=== PATIENT | female | born 1940 | race Caucasian/White ===

== ENCOUNTER → 2019-01-13 | Outpatient (CLI) | payer MEDICARE ==
--- NOTE | 2019-01-13 12:53 | US ---
EXAMINATION TYPE: US carotid duplex BILAT DATE OF EXAM: 01/13/2019 COMPARISON: NONE CLINICAL HISTORY: R09.89 Other specified symptoms and signs involvin circ and. dizziness and blacked out for about 6 minutes EXAM MEASUREMENTS: RIGHT: Peak Systolic Velocity (PSV) cm/sec ----- Right CCA: 79.3 ----- Right ICA: 91.0 ----- Right ECA: 115.7 ICA/CCA ratio: 1.1 RIGHT: End Diastole cm/sec ----- Right CCA: 14.0 ----- Right ICA: 19.8 ----- Right ECA: 15.4 LEFT: Peak Systolic Velocity (PSV) cm/sec ----- Left CCA: 87.8 ----- Left ICA: 103.0 ----- Left ECA: 89.8 ICA/CCA ratio: 1.2 LEFT: End Diastole cm/sec ----- Left CCA: 13.1 ----- Left ICA: 33.7 ----- Left ECA: 0 VERTEBRALS (direction of flow): Right Vertebral: Antegrade Left Vertebral: Antegrade Rhythm: Normal Intimal thickening bilaterally. No athrosclerotic changes No hemodynamic stenosis IMPRESSION: Mild degree of grayscale atheromatous plaquing with no sonographically evident hemodynam ically significant stenosis within either visualized carotid arterial system. Criteria for Assigning % of Stenosis / Diameter reduction (Estimation based on the indirect measurements of the internal carotid artery velocities (ICA PSV). 1. Normal (no stenosis)=ICA PSV < 125 cm/s: ratio < 2.0: ICA EDV<40 cm/s. 2. Less than 50% stenosis=ICA PSV < 125 cm/s: ratio < 2.0: ICA EDV<40 cm/s. 3. 50 to 69% stenosis=ICA PSV of 125 to 230 cm/s: ration 2.0 ? 4.0: ICA EDV 40-100 cm/s. 4. Greater than 70% stenosis to near occlusion= ICA PSV > 230 cm/s: ratio > 4.0: ICA EDV > 100 cm/s. 5. Near occlusion= ICA PSV velocities may be low or undetectable: variable ratio and ICA EDV. 6. Total occlusion=unable to detect flow.
== END | disposition home or self-care (01) ==
LOC: RADBDWWP 09:00
PROVIDERS: ATTEND Internal Medicine
DX: I65.23 Occlusion and stenosis of bilateral carotid arteries (principal)
CPT/HCPCS: 93880

== ENCOUNTER 2019-03-26 13:05 | Observation (INO) | payer MEDICARE ==
[2019-03-26] MEDS ORDERED: SODIUM CHLORIDE 0.9% 500 ML 500 ML IV STA (13:41)
[2019-03-26 14:14] LABS: Basophils % (A) 1 %; Eosinophils # (A) 0.1 k/uL (0-0.7); Eosinophils % (A) 1 %; HCT 41.3 % (34.0-46.0); Lymphocytes # (A) 2.4 k/uL (1.0-4.8); Lymphocytes % (A) 41 %; MCH 29.7 pg (25.0-35.0); MCHC 33.8 g/dL (31.0-37.0); MCV 87.9 fL (80.0-100.0); Mean Platelet Volume 6.8; Monocytes # (A) 0.3 k/uL (0-1.0); Monocytes % (A) 5 %; Neutrophils % (A) 51 %; Platelet Count 302 k/uL (150-450); RDW 15.8 % (11.5-15.5); WBC 5.9 k/uL (3.8-10.6)
--- NOTE | 2019-03-26 14:15 | XR ---
EXAMINATION TYPE: XR chest 2V DATE OF EXAM: 03/26/2019 COMPARISON: NONE HISTORY: Syncope TECHNIQUE: Frontal and lateral views of the chest are obtained. FINDINGS: There is no heart failure nor confluent pneumonic infiltrate. Costophrenic angles are mia r. Heart size is normal. Thoracic aorta is atheromatous. There are chest leads. IMPRESSION: No active cardiopulmonary disease. Normal heart.
--- NOTE | 2019-03-26 14:20 | ED ---
Syncope HPI - General Chief Complaint: Syncope Stated Complaint: Syncope Time Seen by Provider: 03/26/19 13:28 Source: patient, RN notes reviewed Mode of arrival: wheelchair Limitations: no limitations - History of Present Illness Initial Comments: 79-year-old female presents emergency Department with chief complaint of syncopal episode. Patient was upstairs visiting a friend in which she had a witnessed syncopal episode. Patient states that she felt like she needed to have a bowel movement states that she started having severe abdominal cramps and which she states that she felt like she was given a pass out so she laid down. A few seconds later she got up to have a bowel movement states that her friend witnessed her turned diaphoretic, pale and started having severe cramping again. Patient then passed out in which she was caught by person the room she was observed for several minutes to not be responsive though was breathing. Nurses on the floor were contemplating calling the code. Patient states that she has no complaints at this time patient did come to she has had this happen in the past. Patient does not take any current medications. - Related Data Home Medications Medication Instructions Recorded Confirmed No Known Home Medications 02/12/16 03/26/19 Allergies Allergy/AdvReac Type Severity Reaction Status Date / Time codeine AdvReac Nausea Verified 03/26/19 13:20 Sulfa (Sulfonamide AdvReac Nausea Verified 03/26/19 13:20 Antibiotics) Review of Systems ROS Statement: Those systems with pertinent positive or pertinent negative responses have been documented in the HPI. ROS Other: All systems not noted in ROS Statement are negative. Past Medical History Past Medical History: Eye Disorder Additional Past Medical History / Comment(s): CATARACTS BILAT EYES History of Any Multi-Drug Resistant Organisms: None Reported Past Surgical History: Hysterectomy, Tubal Ligation Additional Past Surgical History / Comment(s): COLONSCOPY, VARICOSE VEINS STRIPPED Past Anesthesia/Blood Transfusion Reactions: No Reported Reaction Past Psychological History: No Psychological Hx Reported Smoking Status: Never smoker - Past Family History Sister(s) Family Medical History: Cancer Brother(s) Family Medical History: Cancer Additional Family Medical History / Comment(s): 2 BROTHERS General Exam Limitations: no limitations General appearance: alert, in no apparent distress Head exam: Present: atraumatic, normocephalic, normal inspection Eye exam: Present: normal appearance, PERRL, EOMI. Absent: scleral icterus, conjunctival injection, periorbital swelling ENT exam: Present: normal exam, normal oropharynx, mucous membranes moist Neck exam: Present: normal inspection, full ROM. Absent: tenderness, meningismus, lymphadenopathy Respiratory exam: Present: normal lung sounds bilaterally. Absent: respiratory distress, wheezes, rales, rhonchi, stridor Cardiovascular Exam: Present: normal rhythm, tachycardia, normal heart sounds. Absent: systolic murmur, diastolic murmur, rubs, gallop, clicks GI/Abdominal exam: Present: soft, normal bowel sounds. Absent: distended, tenderness, guarding, rebound, rigid Neurological exam: Present: alert, oriented X3, CN II-XII intact Skin exam: Present: warm, dry, intact, normal color. Absent: rash Course Vital Signs 03/26/19 03/26/19 03/26/19 13:06 13:31 14:19 Temperature 97.7 F Pulse Rate 53 L Pulse Rate [ Liquor Tester ] Respiratory 16 16 Rate Blood Pressure 130/62 Blood Pressure [Left Arm Sitting] Blood Pressure [Left Arm Standing] Blood Pressure 156/71 [Left Arm Supine] O2 Sat by Pulse 93 L 95 99 Oximetry 03/26/19 03/26/19 14:21 14:23 Temperature Pulse Rate Pulse Rate [ 68 Liquor Tester ] Respiratory 16 16 Rate Blood Pressure Blood Pressure 169/71 [Left Arm Sitting] Blood Pressure 169/81 [Left Arm Standing] Blood Pressure [Left Arm Supine] O2 Sat by Pulse 99 98 Oximetry EKG Findings - EKG Comments: EKG Findings:: EKG performed at 13:32 sinus bradycardia rate of 48 MT 172 QRS 86 QT/QTC 500/446 Medical Decision Making - Medical Decision Making 79-year-old female presented for syncopal episode. Patient's found to be bradycardic, did have a witness equal episode with no neurological deficits this time. She no head injury. Patient's labs unremarkable. Patient be admitted at this time. - Lab Data Result diagrams: 03/26/19 13:45 03/26/19 13:45 Lab Results 03/26/19 03/26/19 03/26/19 Range/Units 13:45 13:45 13:45 WBC 5.9 (3.8-10.6) k/uL RBC 4.70 (3.80-5.40) m/uL Hgb 14.0 (11.4-16.0) gm/dL Hct 41.3 (34.0-46.0) % MCV 87.9 (80.0-100.0) fL MCH 29.7 (25.0-35.0) pg MCHC 33.8 (31.0-37.0) g/dL RDW 15.8 H (11.5-15.5) % Plt Count 302 (150-450) k/uL Neutrophils % 51 % Lymphocytes % 41 % Monocytes % 5 % Eosinophils % 1 % Basophils % 1 % Neutrophils # 3.0 (1.3-7.7) k/uL Lymphocytes # 2.4 (1.0-4.8) k/uL Monocytes # 0.3 (0-1.0) k/uL Eosinophils # 0.1 (0-0.7) k/uL Basophils # 0.0 (0-0.2) k/uL PT 10.1 (9.0-12.0) sec INR 0.9 (<1.2) APTT 19.4 L (22.0-30.0) sec Sodium 141 (137-145) mmol/L Potassium 3.9 (3.5-5.1) mmol/L Chloride 108 H (98-107) mmol/L Carbon Dioxide 23 (22-30) mmol/L Anion Gap 10 mmol/L BUN 17 (7-17) mg/dL Creatinine 0.99 (0.52-1.04) mg/dL Est GFR (CKD-EPI)AfAm 62 (>60 ml/min/1.73 sqM) Est GFR (CKD-EPI)NonAf 54 (>60 ml/min/1.73 sqM) Glucose 133 H (74-99) mg/dL Calcium 9.5 (8.4-10.2) mg/dL Magnesium 2.3 (1.6-2.3) mg/dL Total Bilirubin 0.5 (0.2-1.3) mg/dL AST 37 H (14-36) U/L ALT 29 (9-52) U/L Alkaline Phosphatase 68 (38-126) U/L Troponin I (0.000-0.034) ng/mL Total Protein 7.1 (6.3-8.2) g/dL Albumin 4.3 (3.5-5.0) g/dL 03/26/19 Range/Units 13:45 WBC (3.8-10.6) k/uL RBC (3.80-5.40) m/uL Hgb (11.4-16.0) gm/dL Hct (34.0-46.0) % MCV (80.0-100.0) fL MCH (25.0-35.0) pg MCHC (31.0-37.0) g/dL RDW (11.5-15.5) % Plt Count (150-450) k/uL Neutrophils % % Lymphocytes % % Monocytes % % Eosinophils % % Basophils % % Neutrophils # (1.3-7.7) k/uL Lymphocytes # (1.0-4.8) k/uL Monocytes # (0-1.0) k/uL Eosinophils # (0-0.7) k/uL Basophils # (0-0.2) k/uL PT (9.0-12.0) sec INR (<1.2) APTT (22.0-30.0) sec Sodium (137-145) mmol/L Potassium (3.5-5.1) mmol/L Chloride (98-107) mmol/L Carbon Dioxide (22-30) mmol/L Anion Gap mmol/L BUN (7-17) mg/dL Creatinine (0.52-1.04) mg/dL Est GFR (CKD-EPI)AfAm (>60 ml/min/1.73 sqM) Est GFR (CKD-EPI)NonAf (>60 ml/min/1.73 sqM) Glucose (74-99) mg/dL Calcium (8.4-10.2) mg/dL Magnesium (1.6-2.3) mg/dL Total Bilirubin (0.2-1.3) mg/dL AST (14-36) U/L ALT (9-52) U/L Alkaline Phosphatase (38-126) U/L Troponin I <0.012 (0.000-0.034) ng/mL Total Protein (6.3-8.2) g/dL Albumin (3.5-5.0) g/dL Disposition Clinical Impression: Syncope, Bradycardia Disposition: ADMITTED IP TO THIS HOSP Condition: Stable Referrals: Alejandro Lopez MD [Primary Care Provider] - 1-2 days
[2019-03-26 14:22] LABS: Albumin 4.3 g/dL (3.5-5.0); Calcium 9.5 mg/dL (8.4-10.2); Magnesium 2.3 mg/dL (1.6-2.3); Total Bilirubin 0.5 mg/dL (0.2-1.3); Total Protein 7.1 g/dL (6.3-8.2)
[2019-03-26 14:29] LABS: Potassium 3.9 mmol/L (3.5-5.1)
[2019-03-26 14:42] LABS: INR 0.9 (<1.2); Prothrombin Time 10.1 sec (9.0-12.0)
[2019-03-26 14:46] LABS: Partial Thromboplastin Time 19.4 sec (22.0-30.0)
[2019-03-26] MEDS ORDERED: NALOXONE 0.4 MG/ML 1 ML VIAL IV PRN (15:06)
[2019-03-26] MEDS ORDERED: ACETAMINOPHEN TAB 325 MG TAB PO PRN (15:06)
[2019-03-26 15:40] LABS: Appearance,Urine Clear (Clear); Bilirubin,Urine Negative (Negative); Blood,Urine Negative (Negative); Color,Urine Light Yellow; Glucose,Urine (UA) Negative (Negative); Ketones,Urine Negative (Negative); Leukocyte Esterase,Urine Negative (Negative); Nitrite,Urine Negative (Negative); Protein,Urine Negative (Negative); Specific Gravity,Urine 1.009 (1.001-1.035); Urobilinogen,Urine <2.0 mg/dL (<2.0)
--- NOTE | 2019-03-26 16:33 | P.HPIM ---
History of Present Illness H&P Date: 03/26/19 Chief Complaint: syncope Patient is an 79-year-old female with a past medical history of cataracts and prior syncopal events who was here visiting her friend and had a syncopal event. She initially felt some abdominal pain and cramping and that she had a bowel movement. She then started feeling faint and dizzy. She broke out in sweat. She then later resolved on the floor to stop from passing out and raised her legs. She then felt slightly better. She tried to get up to the toilet. While she was on the toilet trying to have a bowel movement she had passed out and was unresponsive. Per bystanders she stopped breathing and turned blue. She was laid back on the floor and woke back up. She was then taken to the ER. On arrival to the emergency department she was found be slightly bradycardic with heart rate of 53. Blood pressure was 130/62 and oxyg en saturation was 93% on room air. Initial laboratory analysis showed a slightly elevated glucose at 133. Urinalysis was negative. Chest x-ray showed no acute process. EKG demonstrated sinus bradycardia at a rate of 48, MI 172, QRS 86, QTC 446. Initial set of orthostatics was negative in the ER. Arrangements were made for admission for syncopal event. She reports that she had a similar episode approximately 3 years ago where she became lightheaded, diaphoretic, and passed out. She reports she underwent an evaluation with Dr. Lopez and no cause was found. She reports that her abdomina l pain started suddenly stay and felt a cramping in the have a bowel movement. She did not have any abdominal pain prior to this episode and is now resolved. She states that she felt diaphoretic and as though she would pass out but she laid herself on the floor. She was not in any palpitations, shortness of breath, she felt overall weak but did not have any strokelike symptoms. She initially went to the bathroom and laid back down on the floor. She will bowel movement when she was on the toilet. She then got up to try to have another bowel movement and this is when she passed out. This for a few minutes. Her friend who is a nurse practitioner was a bystander and reports that she vomited after waking back up. She states that she was very pale, diaphoretic, and was not breathing normally. There is no signs of shaking, no loss of bowel or bladder control noted. She immediately woke back up. She has not been ill recently. She does see a natural doctor and takes a cardio plus supplement +2 additional supplements. She's been doing so for approximately 2 years. Review of Systems Pertinent positives and negatives as discussed in HPI, a complete review of systems was performed and all other systems are negative. Past Medical History Past Medical History: Eye Disorder Additional Past Medical History / Comment(s): CATARACTS BILAT EYES History of Any Multi-Drug Resistant Organisms: None Reported Past Surgical History: Hysterectomy, Tubal Ligation Additional Past Surgical History / Comment(s): COLONSCOPY, VARICOSE VEINS STRIPPED Past Anesthesia/Blood Transfusion Reactions: No Reported Reaction Past Psychological History: No Psychological Hx Reported Smoking Status: Never smoker Past Alcohol Use History: None Reported Past Drug Use History: None Reported Additional History: Lives with her friend, no assistive devices - Past Family History Sister(s) Family Medical History: Cancer Brother(s) Family Medical History: Cancer Additional Family Medical History / Comment(s): 2 BROTHERS. Younger brother with valvular diesease requiring repleacement and PPM Father Family Medical History: Myocardial Infarction ([place]) Mother Family Medical History: Myocardial Infarction ([place]) Medications and Allergies Home Medications Medication Instructions Recorded Confirmed Type No Known Home Medications 02/12/16 03/26/19 History Allergies Allergy/AdvReac Type Severity Reaction Status Date / Time codeine AdvReac Nausea Verified 03/26/19 13:20 Sulfa (Sulfonamide AdvReac Nausea Verified 03/26/19 13:20 Antibiotics) Physical Exam Osteopathic Statement: *. No significant issues noted on an osteopathic structural exam other than those noted in the History and Physical/Consult. Vitals: Vital Signs Temp Pulse Pulse Resp BP BP BP 03/26/19 15:35 97.5 F L 73 16 172/72 03/26/19 14:23 68 16 169/81 03/26/19 14:21 16 169/71 03/26/19 14:19 16 03/26/19 13:31 03/26/19 13:06 97.7 F 53 L 16 130/62 BP Pulse Ox 03/26/19 15:35 97 03/26/19 14:23 98 03/26/19 14:21 99 03/26/19 14:19 156/71 99 03/26/19 13:31 95 03/26/19 13:06 93 L Intake and Output 03/26/19 03/26/19 03/26/19 06:59 14:59 22:59 Other: Weight 68.039 kg General: non toxic, no distress, appears younger than stated age, normal weight Derm: no unusual rashes/lesions no unusual ecchymoses, warm, dry Head: atraumatic, normocephalic, symmetric Eyes: EOMI, no lid lag, anicteric sclera, pupils equal round reactive to light ENT: Nose and ears atraumatic, no thrush, no pharyngeal erythema Neck: No thyromegaly, no cervical lymphadenopathy, trachea midline, supple Mouth: no lip lesion, mucus membranes moist Cardiovascular: S1S2 reg, no murmur, positive posterior tibial pulse bilateral, no edema, capillary refill less than 2 seconds Lungs: CTA bilateral, no rhonchi, no rales , no accessory muscle use Abdominal: soft, nontender to palpation, no guarding, no appreciable organomegaly, normal bowel sounds Ext: no gross muscle atrophy, muscle strength 5 out of 5 in all 4 extremities grossly, no contractures, Neuro: CN II-XI grossly intact, light touch intact all 4 extremities, finger to nose within normal limits, Psych: Alert, oriented, appropriate affect Results CBC & Chem 7: 03/26/19 13:45 03/26/19 13:45 Labs: Abnormal Lab Results - Last 24 Hours (Table) 03/26/19 03/26/19 03/26/19 Range/Units 13:45 13:45 13:45 RDW 15.8 H (11.5-15.5) % APTT 19.4 L (22.0-30.0) sec Chloride 108 H (98-107) mmol/L Glucose 133 H (74-99) mg/dL AST 37 H (14-36) U/L Comments: EKG reviewed as dictated above Chest x-ray: report reviewed Thrombosis Risk Factor Assmnt - DVT/VTE Prophylaxis DVT/VTE Prophylaxis: Low risk, early ambulation encouraged Assessment and Plan Assessment: Syncopal event associated with bradycardia - Tele - repeat orthostatics - consult cardio, inpatient vs outpatient echo - fall precuations - Check Mg levels as patient takes cardio-plus supplement which continas mg, niacin, and other supplements The patient is placed in observation with an anticipated less than 2 midnight stay for evaluation of syncope. Surrogate decision-maker: Friend- Judy King CODE STATUS: Full DVT prophylaxis: SCDs Discussed with: Patient, friend, ED physician Anticipated discharge date: 1-[address]: home A total of 35 minutes was spent on the care of this complex patient more than 50% of the time was spent in counseling and care coordination.
[2019-03-26 18:32] VITALS: BMI 26.5
[2019-03-27 08:09] VITALS: RESP 18; TEMP 97.4
[2019-03-27 11:35] VITALS: BP 163/82; PULSE 54
--- NOTE | 2019-03-27 11:43 | CONS ---
CONSULTATION REASON FOR CONSULT: Bradycardia and vasovagal syncope. HISTORY OF PRESENT ILLNESS: Mrs. Analilia Courtney is an 79-year-old lady without significant past medical history. She has sometimes elevated blood pressure, but does not take any regular medications. She came into see a patient in the Hospital and then she felt somewhat uncomfortable in her stomach and went on to have a bowel movement when she developed abdominal severe cramps and made her feel lightheaded, dizzy sensation of passing out and so she laid down and few seconds later she got up to have a bowel movement again and then turned diaphoretic, pale and had a near syncopal spell and apparently did pass out. She was taken to the emergency room and there she was hydrated. No orthostatic changes. She is feeling better this morning. She still has bradycardia. Her heart rate is in the 50s without any medications. She is resting comfortably without symptoms. She has no orthostatic changes. I made her walk the hallways up and down. Heart rate went up to 84 beats per minute sinus mechanism. She was asymptomatic. PAST MEDICAL HISTORY: She has a history of some hysterectomy, tubal ligation, labile hypertension, but on no medications. She sees Dr. Lopez on a regular basis. MEDICATIONS: At home none. ALLERGIES: ALLERGIC TO CODEINE AND SULFA. PHYSICAL EXAMINATION: Blood pressure is 150/70 without orthostatic changes. Pulse rate is about 56 per minute. HEENT unremarkable. Fundus was not examined by me. Neck is supple. There is no JVD. I do not hear a carotid bruit. Heart exam reveals S1, S2 heard normally. There is a short systolic murmur. Lungs are clear. Abdomen is soft, nontender. Lower extremities reveal normal palpable pulses. No edema. Central nervous system is grossly within normals. The patient had the recently a carotid Doppler which was unremarkable. The EKG revealed sinus bradycardia. No acute changes. IMPRESSION: 1. Episode of vasovagal syncope. The patient may have a high vagal tone. 2. Hypertension, but under fair control. RECOMMENDATIONS: I am asking that we hydrate the patient orally and with increased activity she has no symptoms. Heart rate went up to 84 beats per minute. She can be discharged, but I would recommend an echo as an outpatient and also a 24 hour Holter as well. I explained to the patient that she has a high vagal tone and advised situational modification including staying well hydrated. Thank you very much for the consult. JAMILAL / IJN: [id number] /
--- NOTE | 2019-03-27 12:31 | P.DS ---
Providers Date of admission: 03/26/19 15:26 Expected date of discharge: 03/27/19 Attending physician: Hilaria Garcia, DO Consults: 03/26/19 16:28 Consult Physician Routine Consulting Provider: Janine Casiano Consult Reason/Comments: Syncope Do you want consulting provider notified?: Yes Primary care physician: Alejandro Lopez Hospital Course: Discharge Diagnosis: Syncope Bradycardia- asymptomatic HTN Hospital Course: Patient is an 79-year-old female with a past medical history of cataracts and prior syncopal events who was here visiting her friend and had a syncopal event. She initially felt some abdominal pain and cramping and that she needed to have a bowel movement. She then started feeling faint and dizzy. She broke out in sweat. This resolved when she layed on the floor to stop from passing out and raised her legs. She then felt slightly better. She tried to get up to the toilet. While she was on the toilet trying to have a bowel movement she had passed out and was unresponsive. Per bystanders she stopped breathing and turned blue. She was laid back on the floor and woke back up. She was then taken to the ER. On arrival to the emergency department she was found be slightly bradycardic with heart rate of 53. Blood pressure was 130/62 and oxygen saturation was 93% on room air. Initial laboratory analysis showed a slightly elevated glucose at 133. Urinalysis was negative. Chest x-ray showed no acute process. EKG demonstrated sinus bradycardia at a rate of 48, NH 172, QRS 86, QTC 446. Initial set of orthostatics was negative in the ER. Arrangements were made for admission for syncopal event. She was monitored on telemetry overnight. Should have some bradycardia as well as intermittent fast heart rate episodes. She was seen by cardiology. They did a walk test heart rate did elevate to 84 bpm. Repeat orthostatics were negative. She underwent oral fluid hydration. She was determined stable for discharge home. She'll follow up with cardiology in the office to undergo an echocardiogram and Holter monitor testing. I've also asked her to follow-up with her urinary care physician Dr. Lopez and bring in all of her supplement medications to ensure they are safe to be taken together. She will also return to the emergency department if she has recurrent symptoms. Patient seen and examined at bedside. No chest pain, no additional episodes, tolerated walking fine Vital signs reviewed and stable. General: non toxic, no distress, appears younger than stated age. Derm: warm, dry Head: atraumatic, normocephalic, symmetric Eyes: EOMI, no lid lag, anicteric sclera Mouth: no lip lesion, mucus membranes moist Cardiovascular: S1S2 reg, no murmur, positive posterior tibial pulse bilateral, Lungs: CTA bilateral, no rhonchi, no rales , no accessory muscle use Abdominal: soft, nontender to palpation, no guarding, no appreciable or ganomegaly Ext: no gross muscle atrophy, no edema, no contractures Neuro: CN II-XI grossly intact, no focal neuro deficits Psych: Alert, oriented, appropriate affect A total of 25 minutes of time were spent preparing this complex discharge summary . Pertinent Studies: CXR- No acute process. Patient Condition at Discharge: Stable Plan - Discharge Summary Discharge Rx Participant: No New Discharge Prescriptions: No Action No Known Home Medications Discharge Medication List No Known Home Medications 02/12/16 [History] Follow up Appointment(s)/Referral(s): Alejandro Lopez MD [Primary Care Provider] - 1-2 days
== END 2019-03-27 13:25 | disposition home or self-care (01) ==
LOC: EC 13:05 → 1SOBS 15:26 → 3NMEDONC 16:36
PROVIDERS: ADMIT Internal Medicine; ATTEND Internal Medicine
DX: R55 Syncope and collapse (principal); R00.1 Bradycardia, unspecified; I10 Essential (primary) hypertension; R10.9 Unspecified abdominal pain; R42 Dizziness and giddiness; R61 Generalized hyperhidrosis; R73.9 Hyperglycemia, unspecified; R00.0 Tachycardia, unspecified; R11.10 Vomiting, unspecified; R06.09 Other forms of dyspnea; Z88.5 Allergy status to narcotic agent; Z88.2 Allergy status to sulfonamides; Z82.49 Family history of ischemic heart disease and other diseases of the circulatory system; Z80.9 Family history of malignant neoplasm, unspecified; Z90.710 Acquired absence of both cervix and uterus
CPT/HCPCS: 96360; 99285; 36415; 93005; 84439; 80053; 83735; 84484; 85025; 85610; 85730; 81003; 71046; G0378 ×3

== ENCOUNTER → 2019-04-15 | Outpatient (CLI) | payer MEDICARE ==
--- NOTE | 2019-04-15 12:16 | ECHOS ---
STRESS ECHOCARDIOGRAM INDICATIONS: Syncope MEDICATIONS: None. BASELINE HEART RATE: 61 BASELINE BLOOD PRESSURE: 135/89 MAXIMUM HEART RATE: 142 MAXIMUM BLOOD PRESSURE: 212/67 85% MPHR: 119 100% MPHR: 140 METS: 8.5 MAXIMUM STAGE REACHED: 3 TOTAL EXERCISE TIME: 7:00 CLINICAL INFORMATION: Baseline rhythm is a sinus mechanism, rate of 61, normal axis, poor R-wave progression. Baseline blood pressure 135/89 mmHg. Patient exercised on William protocol for 7 minutes reaching peak rate of 142 beats per minute which is equal to 100% maximum predicted heart rate. Peak blood pressure 212/67 mmHg. Test was terminated secondary to fatigue. There was no chest pain. Electrocardiograph monitoring revealed no evidence of diagnostic ischemic ST deviation. FINDINGS: Baseline echocardiogram revealed normal wall thickening and motion. At peak exercise there was normal wall thickening and motion without any hypokinesis or dyskinesis. CONCLUSION: 1. Good exercise tolerance with normal electrocardiograph response to exercise. 2. Normal stress echocardiogram with no evidence of stress-induced ischemia. MMODL / IJN: [id number] /
== END | disposition home or self-care (01) ==
LOC: RADNMMAIN 09:48
PROVIDERS: ATTEND Internal Medicine
DX: R09.89 Other specified symptoms and signs involving the circulatory and respiratory systems (principal); R55 Syncope and collapse
CPT/HCPCS: 93351

== ENCOUNTER 2022-09-25 08:40 | Observation (INO) | payer MEDICARE ==
[2022-09-25] MEDS ORDERED: SODIUM CHLORIDE 0.9% 500 ML 500 ML IV STA (08:47)
--- NOTE | 2022-09-25 08:52 | ED ---
General Adult HPI - General Stated complaint: Near Syncope Time Seen by Provider: 09/25/22 08:42 Source: patient, RN notes reviewed, old records reviewed - History of Present Illness Initial comments: This is an 82-year-old female who presents emergency department with past medical history significant for hypertension. Patient also states she has had 3 episodes of near syncope or syncope in the last 2 years. Patient states she also started on blood pressure medicine in the last 2 months. Patient states this morning she got up to her blood pressure medicine about cord 8 and then started having some abdominal cramping since she's had in the toilet to have a bowel movement. Patient states she became very weak on toilet and very diaphoretic. According to EMS when they got there she was diaphoretic and had a decreased level of consciousness though she was not completely unconscious she was very slow to respond to any questions. EMS stated that when they took her pulse she was in the 30s and I gave her a bolus of fluid in shoulder that after her heart rate came up. Her initial blood pressure had a systolic level of 113. After the fluid bolus she was up into the 140s. Patient denies any chest pain shortness of breath or difficulty breathing. Patient has any abdominal pain patient denies any nausea or diarrhea. Patient denies any recent fever chills or cough. - Related Data Home Medications Medication Instructions Recorded Confirmed amLODIPine [Norvasc] 2.5 mg PO DAILY 09/25/22 09/25/22 Allergies Allergy/AdvReac Type Severity Reaction Status Date / Time codeine AdvReac Nausea Verified 09/25/22 09:06 Sulfa (Sulfonamide AdvReac Nausea Verified 09/25/22 09:06 Antibiotics) Review of Systems ROS Statement: Those systems with pertinent positive or pertinent negative responses have been documented in the HPI. ROS Other: All systems not noted in ROS Statement are negative. Past Medical History Past Medical History: Eye Disorder Additional Past Medical History / Comment(s): CATARACTS BILAT EYES History of Any Multi-Drug Resistant Organisms: None Reported Past Surgical History: Hysterectomy, Tubal Ligation Additional Past Surgical History / Comment(s): COLONSCOPY, VARICOSE VEINS STRIPPED Past Anesthesia/Blood Transfusion Reactions: No Reported Reaction Past Psychological History: No Psychological Hx Reported Past Alcohol Use History: None Reported Past Drug Use History: None Reported - Past Family History Sister(s) Family Medical History: Cancer Brother(s) Family Medical History: Cancer Additional Family Medical History / Comment(s): 2 BROTHERS. Younger brother with valvular diesease requiring repleacement and PPM Father Family Medical History: Myocardial Infarction ([place]) Mother Family Medical History: Myocardial Infarction ([place]) General Exam - General Exam Comments Initial Comments: GENERAL: Patient is well-developed and well-nourished. Patient is nontoxic and well- hydrated and is in no acute distress. ENT: Neck is soft and supple. No significant lymphadenopathy is noted. Oropharynx is clear. Moist mucous membranes. Neck has full range of motion without eliciting any pain. EYES: The sclera were anicteric and conjunctiva were pink and moist. Extraocular movements were intact and pupils were equal round and reactive to light. Eyelids were unremarkable. PULMONARY: Unlabored respirations. Good breath sounds bilaterally. No audible rales rhonchi or wheezing was noted. CARDIOVASCULAR: Heart rate is about 50 beats a minute and regular ABDOMEN: Soft and nontender with normal bowel sounds. SKIN: Skin is clear with no lesions or rashes and otherwise unremarkable. NEUROLOGIC: Patient is alert and oriented x3. Cranial nerves II through XII are grossly intact. Motor and sensory are also intact. Normal speech, volume and content. Symmetrical smile. MUSCULOSKELETAL: Normal extremities with adequate strength and full range of motion. No lower extremity swelling or edema. No calf tenderness. LYMPHATICS: No significant lymphadenopathy is noted PSYCHIATRIC: Normal psychiatric evaluation. Course Vital Signs 09/25/22 09/25/22 09/25/22 08:42 08:58 09:04 Temperature 97.4 F L Pulse Rate 58 L 61 Respiratory 18 Rate Blood Pressure 108/53 116/65 Blood Pressure 123/83 [Left Arm Sitting] Blood Pressure 129/69 [Left Arm Standing] Blood Pressure 123/61 [Left Arm Supine] O2 Sat by Pulse 98 100 Oximetry Medical Decision Making - Medical Decision Making EKG was interpreted by myself as sinus bradycardia with occasional PAC at 50 bpm WV interval 284 QRS is 88 QT interval 476 QTC is 449. Patient's EKG shows no ST segment elevation or depression Was pt. sent in by a medical professional or institution (, PA, UNIONMELT OPERATOR, urgent care, hospital, or long term...) When possible be specific @ -No Did you speak to anyone other than the patient for history (EMS, parent, family, police, friend...)? What history was obtained from this source @ -EMS gave us the history from when the patient wasn't responding at home Did you review nursing and triage notes (agree or disagree)? Why? @ -I reviewed and agree with nursing and triage notes Were old charts reviewed (outside hosp., previous admission, EMS record, old EKG, old radiological studies, urgent care reports/EKG's, long term records)? Report findings @ -I reviewed prior laboratory results as well as prior radiological studies Differential Diagnosis (chest pain, altered mental status, abdominal pain women, abdominal pain men, vaginal bleeding, weakness, fever, dyspnea, syncope, headache, dizziness, GI bleed, back pain, seizure, CVA, palpatations, mental health, musculoskeletal)? @ -Differential Syncope: Valvular disease, hypertrophic cardiomyopathy, pulmonary embolism, tamponade, tachycardia, bradycardia, NH, hypovolemia, hemorrhage, dissection, anemia, intracranial hemorrhage, seizure, hypoglycemia, carbon monoxide poisoning, this is not meant to be an all-inclusive list. EKG interpreted by me (3pts min.). @ -As above X-rays interpreted by me (1pt min.). @ -Chest x-ray was interpreted by myself shows no acute abnormality CT interpreted by me (1pt min.). @ -None done U/S interpreted by me (1pt. min.). @ -None done What testing was considered but not performed or refused? (CT, X-rays, U/S, labs)? Why? @ -None What meds were considered but not given or refused? Why? @ -None Did you discuss the management of the patient with other professionals (professionals i.e. , PA, UNIONMELT OPERATOR, lab, RT, psych nurse, social service assistant, radio station manager, teacher, navy senior officer, case finisher)? Give summary @ -I spoke with Dr. quijano he agreed to admit the patient admitted the patient wrote admitting orders Was smoking cessation discussed for >3mins.? @ -No Was critical care preformed (if so, how long)? @ -No Were there social determinants of health that impacted care today? How? (Homelessness, low income, unemployed, alcoholism, drug addiction, trans portation, low edu. Level, literacy, decrease access to med. care, skilled nursing, rehab)? @ -No Was there de-escalation of care discussed even if they declined (Discuss DNR or withdrawal of care, Hospice)? DNR status @ -No What co-morbidities impacted this encounter? (DM, HTN, Smoking, COPD, CAD, Cancer, CVA, ARF, Chemo, Hep., AIDS, mental health diagnosis, sleep apnea, morbid obesity)? @ -Hypertension Was patient admitted / discharged? Hospital course, mention meds given and route, prescriptions, significant lab abnormalities, going to OR and other pertinent info. @ -Patient's heart rate on arrival was 50 however it was in the 30s according to EMS. Patient remained in the 50s for a short period time but eventually increased to a normal range. Patient was asymptomatic throughout her ED stay. I spoke with the [facility] hospitalist Dr. quijano he agreed to admit the patient and the patient wrote admitting orders Undiagnosed new problem with uncertain prognosis? @ -No Drug Therapy requiring intensive monitoring for toxicity (Heparin, Nitro, Insulin, Cardizem)? @ -No Were any procedures done? @ -No Diagnosis/symptom? @ -Near syncope Acute, or Chronic, or Acute on Chronic? @ -Acute Uncomplicated (without systemic symptoms) or Complicated (systemic symptoms)? @ -Complicated Side effects of treatment? @ -No Exacerbation, Progression, or Severe Exacerbation? @ -No Poses a threat to life or bodily function? How? (Chest pain, [place], NH, pneumonia, PE, COPD, DKA, ARF, appy, cholecystitis, CVA, Diverticulitis, Homicidal, Suicidal, threat to staff... and all critical care pts) @ -Yes this could be secondary to an arrhythmia which could lead to hypoperfusion. Diagnosis/symptom? @ -Bradycardia Acute, or Chronic, or Acute on Chronic? @ -Acute Uncomplicated (without systemic symptoms) or Complicated (systemic symptoms)? @ -Complications Side effects of treatment? @ -none Exacerbation, Progression, or Severe Exacerbation] @ -no Poses a threat to life or bodily function? @ -Yes is given lead to a syncopal episode and potential trauma. Also lead to hypoperfusion - Lab Data Result diagrams: 09/25/22 08:55 09/25/22 08:55 Lab Results 09/25/22 09/25/22 09/25/22 Range/Units 08:55 08:55 08:55 WBC 6.6 (3.8-10.6) k/uL RBC 4.40 (3.80-5.40) m/uL Hgb 13.8 (11.4-16.0) gm/dL Hct 39.2 (34.0-46.0) % MCV 89.1 (80.0-100.0) fL MCH 31.4 (25.0-35.0) pg MCHC 35.3 (31.0-37.0) g/dL RDW 13.9 (11.5-15.5) % Plt Count 235 (150-450) k/uL MPV 7.5 Neutrophils % 40 % Lymphocytes % 52 % Monocytes % 5 % Eosinophils % 1 % Basophils % 1 % Neutrophils # 2.6 (1.3-7.7) k/uL Lymphocytes # 3.4 (1.0-4.8) k/uL Monocytes # 0.3 (0-1.0) k/uL Eosinophils # 0.1 (0-0.7) k/uL Basophils # 0.0 (0-0.2) k/uL PT 10.4 (9.0-12.0) sec INR 1.0 (<1.2) APTT 20.9 L (22.0-30.0) sec Sodium 138 (137-145) mmol/L Potassium 4.1 (3.5-5.1) mmol/L Chloride 108 H (98-107) mmol/L Carbon Dioxide 25 (22-30) mmol/L Anion Gap 5 mmol/L BUN 14 (7-17) mg/dL Creatinine 0.84 (0.52-1.04) mg/dL Est GFR (CKD-EPI)AfAm 74 (>60 ml/min/1.73 sqM) Est GFR (CKD-EPI)NonAf 64 (>60 ml/min/1.73 sqM) Glucose 142 H (74-99) mg/dL Calcium 8.4 (8.4-10.2) mg/dL Magnesium 2.1 (1.6-2.3) mg/dL Total Bilirubin 0.6 (0.2-1.3) mg/dL AST 31 (14-36) U/L ALT 21 (4-34) U/L Alkaline Phosphatase 53 (38-126) U/L Troponin I (0.000-0.034) ng/mL Total Protein 6.3 (6.3-8.2) g/dL Albumin 3.7 (3.5-5.0) g/dL 09/25/22 Range/Units 08:55 WBC (3.8-10.6) k/uL RBC (3.80-5.40) m/uL Hgb (11.4-16.0) gm/dL Hct (34.0-46.0) % MCV (80.0-100.0) fL MCH (25.0-35.0) pg MCHC (31.0-37.0) g/dL RDW (11.5-15.5) % Plt Count (150-450) k/uL MPV Neutrophils % % Lymphocytes % % Monocytes % % Eosinophils % % Basophils % % Neutrophils # (1.3-7.7) k/uL Lymphocytes # (1.0-4.8) k/uL Monocytes # (0-1.0) k/uL Eosinophils # (0-0.7) k/uL Basophils # (0-0.2) k/uL PT (9.0-12.0) sec INR (<1.2) APTT (22.0-30.0) sec Sodium (137-145) mmol/L Potassium (3.5-5.1) mmol/L Chloride (98-107) mmol/L Carbon Dioxide (22-30) mmol/L Anion Gap mmol/L BUN (7-17) mg/dL Creatinine (0.52-1.04) mg/dL Est GFR (CKD-EPI)AfAm (>60 ml/min/1.73 sqM) Est GFR (CKD-EPI)NonAf (>60 ml/min/1.73 sqM) Glucose (74-99) mg/dL Calcium (8.4-10.2) mg/dL Magnesium (1.6-2.3) mg/dL Total Bilirubin (0.2-1.3) mg/dL AST (14-36) U/L ALT (4-34) U/L Alkaline Phosphatase (38-126) U/L Troponin I 0.015 (0.000-0.034) ng/mL Total Protein (6.3-8.2) g/dL Albumin (3.5-5.0) g/dL Disposition Clinical Impression: Near syncope, Bradycardia Disposition: ADMITTED IP TO THIS HOSP Referrals: Edgardo Huang III, MD [Primary Care Provider] - 1-2 days Time of Disposition: 10:24
[2022-09-25 09:03] VITALS: RESP 18
[2022-09-25 09:10] LABS: Basophils % (A) 1 %; Eosinophils # (A) 0.1 k/uL (0-0.7); Eosinophils % (A) 1 %; HCT 39.2 % (34.0-46.0); HGB 13.8 gm/dL (11.4-16.0); Lymphocytes # (A) 3.4 k/uL (1.0-4.8); Lymphocytes % (A) 52 %; MCH 31.4 pg (25.0-35.0); MCHC 35.3 g/dL (31.0-37.0); MCV 89.1 fL (80.0-100.0); Mean Platelet Volume 7.5; Monocytes # (A) 0.3 k/uL (0-1.0); Monocytes % (A) 5 %; Neutrophils # (A) 2.6 k/uL (1.3-7.7); Neutrophils % (A) 40 %; Platelet Count 235 k/uL (150-450); RDW 13.9 % (11.5-15.5); WBC 6.6 k/uL (3.8-10.6)
[2022-09-25 09:21] LABS: Calcium 8.4 mg/dL (8.4-10.2); Total Bilirubin 0.6 mg/dL (0.2-1.3)
[2022-09-25 09:23] LABS: Albumin 3.7 g/dL (3.5-5.0); Magnesium 2.1 mg/dL (1.6-2.3); Potassium 4.1 mmol/L (3.5-5.1); Total Protein 6.3 g/dL (6.3-8.2)
[2022-09-25 09:25] LABS: Prothrombin Time 10.4 sec (9.0-12.0)
--- NOTE | 2022-09-25 09:30 | XR ---
EXAMINATION TYPE: XR chest 2V DATE OF EXAM: 09/25/2022 COMPARISON: 03/26/2019 HISTORY: 82-year-old female with chest pain TECHNIQUE: PA and lateral views FINDINGS: Heart normal size. Similar mild elongation and tortuosity of the thoracic aorta. Possible developing nodularity at the periphery of the right mid lung. Mild interstitial prominence is unchanged. No cons olidation or pleural effusion. IMPRESSION: Possible developing nodularity at the periphery of the right midlung. Either short interval follow-up to reassess versus CT to exclude a suspicious pulmonary nodule. Otherwise, no focal infiltrate seen.
[2022-09-25 09:49] LABS: Partial Thromboplastin Time 20.9 sec (22.0-30.0)
[2022-09-25] MEDS ORDERED: SODIUM CHLORIDE 0.9% 1,000 ML IV ONE (10:25)
--- NOTE | 2022-09-25 10:43 | P.HPIM ---
History of Present Illness This is a pleasant 82 years old female with no significant past medical history, except for mild hypertension on Norvasc 2.5 mg daily started about 2 months ago. Patient presents because of syncope. Patient states this is the fourth time over 1-1.5 years. One time she was in the restaurant Patient was on the toilet trying to have a bowel movement, she felt dizzy and almost passed out but she didn't actually lose consciousness. She denies chest pain or dyspnea. No abdominal pain vomiting or diarrhea. No change in urine or bowel habits. No hepatic weakness or numbness. Patient denies smoking alcohol or illicit drugs. I spoke to the ER physician which says that on admission her heart was in the 30s, and the computer is documented heart rates on the presentation at 58 but currently is 61. Patient says that she passed out like 2-3 times over the last year. Orthostatic vitals are negative. Labs checked and showing unremarkable CBC, INR, BMP and diverting enzymes. Troponin is negative. Chest x-ray: No acute process. There is nodular lesion on the right, Recommended follow-up EKG: Sinus bradycardia at 50 Review of Systems Review of systems CONSTITUTIONAL: No fever, no malaise, no fatigue. HEENT: No recent visual problems or hearing problems. Denied any sore throat. CARDIOVASCULAR: No orthopnea, PND, no palpitations, no syncope. PULMONARY: No shortness of breath, no cough, no hemoptysis. GASTROINTESTINAL: No diarrhea, no nausea, no vomiting, no abdominal pain. Normoactive bowel sounds. NEUROLOGICAL: No headaches, no weakness, no numbness. HEMATOLOGICAL: Denies any bleeding or petechiae. GENITOURINARY: Denies any burning micturition, frequency, or urgency. MUSCULOSKELETAL/RHEUMATOLOGICAL: Denies any joint pain, swelling, or any muscle pain. ENDOCRINE: Denies any polyuria or polydipsia. Past Medical History Past Medical History: Eye Disorder Additional Past Medical History / Comment(s): CATARACTS BILAT EYES History of Any Multi-Drug Resistant Organisms: None Reported Past Surgical History: Hysterectomy, Tubal Ligation Additional Past Surgical History / Comment(s): COLONSCOPY, VARICOSE VEINS STRIPPED Past Anesthesia/Blood Transfusion Reactions: No Reported Reaction Past Psychological History: No Psychological Hx Reported Past Alcohol Use History: None Reported Past Drug Use History: None Reported - Past Family History Sister(s) Family Medical History: Cancer Brother(s) Family Medical History: Cancer Additional Family Medical History / Comment(s): 2 BROTHERS. Younger brother with valvular diesease requiring repleacement and PPM Father Family Medical History: Myocardial Infarction ([place]) Mother Family Medical History: Myocardial Infarction ([place]) Medications and Allergies Home Medications Medication Instructions Recorded Confirmed Type amLODIPine [Norvasc] 2.5 mg PO DAILY 09/25/22 09/25/22 History Allergies Allergy/AdvReac Type Severity Reaction Status Date / Time codeine AdvReac Nausea Verified 09/25/22 09:06 Sulfa (Sulfonamide AdvReac Nausea Verified 09/25/22 09:06 Antibiotics) Physical Exam Vitals: Vital Signs Temp Pulse Resp BP BP BP BP 09/25/22 09:04 97.4 F L 123/83 129/69 123/61 09/25/22 08:58 61 18 116/65 09/25/22 08:42 58 L 108/53 Pulse Ox 09/25/22 09:04 09/25/22 08:58 100 09/25/22 08:42 98 Intake and Output 09/24/22 09/25/22 09/25/22 22:59 06:59 14:59 Other: Weight 68.039 kg GENERAL: The patient is alert and oriented x3, not in any acute distress. Well developed, well nourished. HEENT: Pupils are round and equally reacting to light. EOMI. No scleral icterus. No conjunctival pallor. Normocephalic, atraumatic. No pharyngeal erythema. No thyromegaly. CARDIOVASCULAR: S1 and S2 present. No murmurs, rubs, or gallops. PULMONARY: Chest is clear to auscultation, no wheezing or crackles. ABDOMEN: Soft, nontender, nondistended, normoactive bowel sounds. No palpable organomegaly. MUSCULOSKELETAL: No joint swelling or deformity. EXTREMITIES: No cyanosis, clubbing, or pedal edema. NEUROLOGICAL: Gross neurological examination did not reveal any focal deficits. SKIN: No rashes. no petechiae. Results CBC & Chem 7: 09/25/22 08:55 09/25/22 08:55 Labs: Abnormal Lab Results - Last 24 Hours (Table) 09/25/22 09/25/22 Range/Units 08:55 08:55 APTT 20.9 L (22.0-30.0) sec Chloride 108 H (98-107) mmol/L Glucose 142 H (74-99) mg/dL Assessment and Plan Assessment: Syncope with negative orthostatic vitals, most likely vasovagal. Rule out cardiac causes Asymptomatic bradycardia Right lung nodule Mild degree of hypertension Plan: Continue monitoring Consults cardiology service Check echocardiogram Follow up with pulmonary as an outpatient, patient was instructed with the same. Risks benefits and alternatives are explained including but not limited to the risk of cancer and she verbalized understanding and acceptance. Labs and medication were reviewed.. Continue same treatment. Continue with symptomatic treatment. Resume home medication. Monitor labs and vitals. DVT and GI prophylaxis. Further recommendations as per clinical course of the patient DVT prophylaxis: Subcutaneous heparin GI Prophylaxis: Pepcid PT/OT: Pending Prognosis is guarded
--- NOTE | 2022-09-25 11:32 | P.CRDCN ---
History of Present Illness Consult date: 09/25/22 History of present illness: HISTORY OF PRESENT ILLNESS: This is a 82 year old female with a past medical history significant for hypertension. Patient does not follow with a e commerce web developer. We have been asked to see the patient in consultation for bradycardia and syncope. Patient examined at the bedside. Patient states this morning she thought she needed to have a bowel movement so she walked into the bathroom. She sat on the toilet and states she had really bad stomach pains. She reports that she started sweating profusely. She thought she was going to pass out so she got up and went to sit in her recliner. She asked her friend to get her a cold washcloth and apparently when the friend came back with the washcloth the patient had passed out. She states this has happened four times, the most recent was about 4 years ago. She denies chest pain or pressure. Denies SOB. Vital signs are stable. Orthostatic blood pressures negative. Apparently, the patients pulse was in the 30s in route to the hospital. However, there has been no documentation of significant bradycardia here. Patients heart rate in the 50-70s currently. * EKG reveals sinus bradycardia with no signs of acute ischemia * Chest xray possible developing nodularity at the periphery of the right midlung. * Laboratory data: W BC 6.6. Hemoglobin 13.8. Platelet count 235. Sodium 138. Potassium 4.1. BUN 14. Creatinine 0.84. Troponin negative 1. * Current home cardiac medications include amlodipine 2.5 mg daily * Patient underwent stress echocardiogram in March 2019 which was negative for ischemia REVIEW OF SYSTEMS: At the time of my exam: CONSTITUTIONAL: Denies fever or chills. HEENT: Denies blurred vision, vision changes, or eye pain. Denies hemoptysis CARDIOVASCULAR: Denies chest pain. Denies orthopnea. Denies PND. Denies palpitations RESPIRATORY: Denies shortness of breath. GASTROINTESTINAL: Denies abdominal pain. Denies nausea or vomiting. HEMATOLOGIC: Denies bleeding disorders. GENITOURINARY: Denies any blood in urine. SKIN: Denies pruitis. Denies rash. PHYSICAL EXAM: VITAL SIGNS: Reviewed. GENERAL: Well-developed in no acute distress. HEENT: Head is normocephalic. Pupils are equal, round. Sclerae anicteric. Mucous membranes of the mouth are moist. Neck supple. No JVD or thyromegaly LUNGS: Respirations even and unlabored. Lungs essentially clear to auscultation bilaterally. HEART: Regular rate and rhythm. S1 and S2 heard. ABDOMEN: Soft. Nondistended. Nontender. EXTREMITIES: Normal range of motion. No clubbing or cyanosis. Peripheral pulses intact. No lower extremity edema NEUROLOGIC: Awake and alert. Oriented x 3. ASSESSMENT: Syncope, likely vasovagal in nature, orthostatics negative Sinus bradycardia History of hypertension PLAN: Obtain 2D echo to assess cardiac structure and function Continue telemetry monitoring Check TSH Orthostatic blood pressures unremarkable Further recommendations pending patient course Nurse practitioner note has been reviewed by physician. Signing provider agrees with the documented findings, assessment, and plan of care. Past Medical History Past Medical History: Eye Disorder Additional Past Medical History / Comment(s): CATARACTS BILAT EYES History of Any Multi-Drug Resistant Organisms: None Reported Past Surgical History: Hysterectomy, Tubal Ligation Additional Past Surgical History / Comment(s): COLONSCOPY, VARICOSE VEINS STRIPPED Past Anesthesia/Blood Transfusion Reactions: No Reported Reaction Past Psychological History: No Psychological Hx Reported Past Alcohol Use History: None Reported Past Drug Use History: None Reported - Past Family History Sister(s) Family Medical History: Cancer Brother(s) Family Medical History: Cancer Additional Family Medical History / Comment(s): 2 BROTHERS. Younger brother with valvular diesease requiring repleacement and PPM Father Family Medical History: Myocardial Infarction ([place]) Mother Family Medical History: Myocardial Infarction ([place]) Medications and Allergies Home Medications Medication Instructions Recorded Confirmed Type amLODIPine [Norvasc] 2.5 mg PO DAILY 09/25/22 09/25/22 History Allergies Allergy/AdvReac Type Severity Reaction Status Date / Time codeine AdvReac Nausea Verified 09/25/22 09:06 Sulfa (Sulfonamide AdvReac Nausea Verified 09/25/22 09:06 Antibiotics) Physical Exam Vitals: Vital Signs Temp Pulse Resp BP BP BP BP 09/25/22 10:21 53 L 18 135/71 09/25/22 09:04 97.4 F L 123/83 129/69 123/61 09/25/22 08:58 61 18 116/65 09/25/22 08:42 58 L 108/53 Pulse Ox 09/25/22 10:21 98 09/25/22 09:04 09/25/22 08:58 100 09/25/22 08:42 98 Intake and Output 09/24/22 09/25/22 09/25/22 22:59 06:59 14:59 Other: Weight 68.039 kg Results 09/25/22 08:55 09/25/22 08:55 Cardiac Enzymes 09/25/22 09/25/22 Range/Units 08:55 08:55 AST 31 (14-36) U/L Troponin I 0.015 (0.000-0.034) ng/mL Coagulation 09/25/22 Range/Units 08:55 PT 10.4 (9.0-12.0) sec APTT 20.9 L (22.0-30.0) sec CBC 09/25/22 Range/Units 08:55 WBC 6.6 (3.8-10.6) k/uL RBC 4.40 (3.80-5.40) m/uL Hgb 13.8 (11.4-16.0) gm/dL Hct 39.2 (34.0-46.0) % Plt Count 235 (150-450) k/uL Comprehensive Metabolic Panel 09/25/22 Range/Units 08:55 Sodium 138 (137-145) mmol/L Potassium 4.1 (3.5-5.1) mmol/L Chloride 108 H (98-107) mmol/L Carbon Dioxide 25 (22-30) mmol/L BUN 14 (7-17) mg/dL Creatinine 0.84 (0.52-1.04) mg/dL Glucose 142 H (74-99) mg/dL Calcium 8.4 (8.4-10.2) mg/dL AST 31 (14-36) U/L ALT 21 (4-34) U/L Alkaline Phosphatase 53 (38-126) U/L Total Protein 6.3 (6.3-8.2) g/dL Albumin 3.7 (3.5-5.0) g/dL Current Medications Generic Name Dose Route Start Last Admin Trade Name Freq PRN Reason Stop Dose Admin Sodium Chloride 1,000 mls @ 50 mls/hr 09/25/22 10:25 09/25/22 11:14 Saline 0.9% IV 09/26/22 06:24 50 mls/hr .Q20H ONE Administration Intake and Output 09/24/22 09/25/22 09/25/22 22:59 06:59 14:59 Other: Weight 68.039 kg Patient Weight 09/26/22 06:59 Weight 68.039 kg 09/25/22 08:55 09/25/22 08:55
[2022-09-25 14:10] VITALS: BP 133/74; PULSE 67; TEMP 97.6
[2022-09-25 14:26] LABS: T4, Free (Free Thyroxine) 0.89 ng/dL (0.78-2.19)
--- NOTE | 2022-09-26 09:44 | CA ---
Transthoracic Echo Report Name: Analilia Courtney Age: 82 Gender: F : 1940 Exam Date: 09/25/2022 11:40 Exam Location: [facility] Ht (in): 63 Wt (lb): 150 Ordering Physician: Parmjit Miller MD Attending/Referring Phys: [id number], Paul [employer] Kathleen Ga RDCS Procedure CPT: Indications: Rule out heart disease Cardiac Hx: Technical Quality: Fair Contrast 1: Total Dose (mL): Contrast 2: Total Dose (mL): MEASUREMENTS (Male / Female) Normal Values 2D ECHO LA Volume 49.5 cm??? 18 - 58 / 22 - 52 cm??? M-MODE Aortic Root Diameter MM 2.8 cm LA Systolic Diameter MM 3.5 cm LA Ao Ratio MM 1.3 AV Cusp Separation MM 1.7 cm DOPPLER AV Peak Velocity 151.5 cm/s AV Peak Gradient 9.2 mmHg AI Peak Velocity 491.5 cm/s AI Peak Gradient 96.6 mmHg AI Pressure Half Time 995.2 ms LVOT Peak Velocity 94.3 cm/s LVOT Peak Gradient 3.6 mmHg MV Area PHT 3.0 cm??? MR Peak Velocity 449.6 cm/s MR Peak Gradient 80.9 mmHg Mitral E Point Velocity 80.1 cm/s Mitral A Point Velocity 124.9 cm/s Mitral E to A Ratio 0.6 MV Deceleration Time 251.8 ms TR Peak Velocity 285.5 cm/s TR Peak Gradient 32.6 mmHg Right Atrial Pressure 3.0 mmHg Pulmonary Artery Systolic Pressu 35.6 mmHg Right Ventricular Systolic Press 35.6 mmHg FINDINGS Left Ventricle Left ventricular cavity size normal. Left ventricular wall thickness normal. Grade 1 diastolic dysfunction. Left ventricular ejection fraction is estimated at 55-60 %. Right Ventricle Normal right ventricular size. Normal right ventricular global systolic function. Mild pulmonary hypertension. Right Atrium Right atrial at the upper limits of normal. Hyperechoic structure seen in the right atrium? Left Atrium Normal left atrial size. Mitral Valve Mitral annular calcification of posterior leaflet. Aortic Valve Trileaflet aortic valve. Thickened aortic valve without stenosis. Tricuspid Valve Moderate tricuspid regurgitation. Pulmonic Valve [id number] pulmonic regurgitation. Pericardium No pericardial or pleural effusion.echo free space anterior to the right ventricle likely represents a fat pad. Aorta Normal size aortic root and proximal ascending aorta. CONCLUSIONS Normal LV systolic function Moderate tricuspid regurgitation Previewed by: Dr. Charli Colorado MD (Electronically Signed) Final Date: 26 September 2022 09:43
== END 2022-09-25 14:07 | disposition left against medical advice (07) ==
LOC: EC 08:40 → 3SCARD 10:26 → INTOOBSV 10:26 → 3SCARD 12:02 → UNDODISIN 14:07
PROVIDERS: ADMIT Internal Medicine; ATTEND Internal Medicine
DX: R55 Syncope and collapse (principal); R00.1 Bradycardia, unspecified; R91.1 Solitary pulmonary nodule; I10 Essential (primary) hypertension; Z53.29 Procedure and treatment not carried out because of patient's decision for other reasons; Z79.899 Other long term (current) drug therapy; Z88.2 Allergy status to sulfonamides; Z88.5 Allergy status to narcotic agent; Z82.49 Family history of ischemic heart disease and other diseases of the circulatory system
CPT/HCPCS: 99285; 36415; 93005; 93306; 84439; 80053; 84443; 83735; 84484; 85025; 85610; 85730; 71046; G0378

== ENCOUNTER → 2023-11-30 | Outpatient (CLI) | payer MEDICARE ==
--- NOTE | 2023-11-30 13:01 | CT ---
EXAMINATION TYPE: CT abdomen pelvis wo con DATE OF EXAM: 11/30/2023 COMPARISON: None HISTORY: hematuria CT DLP: 355.6 mGycm Examination of the solid and hollow viscera is limited given the lack of contrast. FINDINGS: LUNG BASES: No evidence for nodule. No evidence for infiltrate. LIVER/GB: The gallbladder is unremarkable. No space-occupying hepatic lesion. PANCREAS: No pancreatic mass identified. No inflammatory process seen. SPLEEN: No evidence for splenomegaly. No intrasplenic lesions seen. ADRENALS: No adrenal nodules identified. No evidence for thickening. KIDNEYS: No evidence for renal mass. No nephrolithiasis. No hydronephrosis. BOWEL: Appendix has a normal appearance. No evidence of bowel obstruction. There is wall thickening i nvolving the distal descending colon with mild surrounding inflammatory change which could reflect a mild uncomplicated diverticulitis. Underlying neoplasm is not excluded. Correlate clinically and cons ider direct visualization to exclude neoplasm. Lymph nodes: No evidence for adenopathy greater than 1 cm. Abdominal aorta: Atheromatous changes seen. No evidence for aneurysm. Genital organs: Hysterectomy change. Other: No significant abnormality. IMPRESSION: 1.There is wall thickening involving the distal descending colon with mild surrounding inflammatory c hange which could reflect a mild uncomplicated diverticulitis. Underlying neoplasm is not excluded. C orrelate clinically and consider direct visualization to exclude neoplasm. 2. No significant abnormality to account for the patient's symptoms of hematuria on this limited none nhanced study.
== END | disposition home or self-care (01) ==
LOC: RADCTMAIN 12:27
PROVIDERS: ATTEND Urology
DX: K57.92 Diverticulitis of intestine, part unspecified, without perforation or abscess without bleeding (principal); R31.0 Gross hematuria
CPT/HCPCS: 74176